=== PATIENT | female | born 1985 | race Caucasian/White ===

== ENCOUNTER 2017-01-13 12:33 | Emergency (ER) | payer BC ==
[~2017-01-13] VITALS: Ht 162.6 cm; Wt 52.2 kg
[~2017-01-13 12:33] MED LIST: PREN-89 PO
--- NOTE | 2017-01-13 12:40 | NUR ---
PLACED IN BED 7 [facility]ACH[facility] MAYS AT BEDSIDE
--- NOTE | 2017-01-13 12:42 | NUR ---
Dr Lucero at bedside examining patient
--- NOTE | 2017-01-13 12:42 | NUR ---
Pt brought by , reports pt is 5 months pt got on 08/28/16, states she was in [place] airport at 09:00 am and started to have lower abdominal pain 05/23 and her water broke, pt weak, no active bleeding noted, cap refill <3, respirations even and unlabored, pt requesting something to drink.
[2017-01-13 12:44] VITALS: BP 123/82; PULSE 115; RESP 24; TEMP 98; O2SAT 100
[2017-01-13] MEDS ORDERED: NS 1000 ML BAG IV ONE (12:45)
--- NOTE | 2017-01-13 12:55 | NUR ---
Pelvic exam performed by Dr Lucero with at bedside for entire examination. Patient tolerated procedure . Patient assisted to position of comfort after examination.
[2017-01-13 13:12] LABS: CALCIUM 8.5 mg/dL (8.4-11.0); CREATININE 0.66 mg/dL (0.55-1.30); POTASSIUM 3.6 mmol/L (3.5-5.1)
[2017-01-13 13:14] LABS: BASOPHILS % (AUTO) 0.3 % (0.0-2.0); EOSINOPHILS # (AUTO) 0.1 K/uL (0.0-0.4); EOSINOPHILS % (AUTO) 0.8 % (0.0-4.0); HEMATOCRIT 34.5 % (36-48); HEMOGLOBIN 12.3 g/dL (12.0-16.0); LYMPHOCYTES # (AUTO) 1.7 K/uL (1.0-5.5); LYMPHOCYTES % (AUTO) 15.2 % (20.5-51.5); MEAN CORPUSCULAR HEMOGLOBIN 34 pg (27-31); MEAN CORPUSCULAR HGB CONC 36 % (32-36); MEAN CORPUSCULAR VOLUME 94 fL (79.0-98.0); MONOCYTES # (AUTO) 0.6 K/uL (0.0-1.0); MONOCYTES % (AUTO) 5.3 % (1.7-9.3); NEUTROPHILS # (AUTO) 8.7 K/uL (1.8-7.7); NEUTROPHILS % (AUTO) 78.4 % (40.0-70.0); RED BLOOD CELL COUNT(AUTO) 3.65 MIL/uL (4.2-6.2); RED CELL DISTRIBUTION WIDTH 11.8 % (9.0-15.0); WHITE BLOOD COUNT (AUTO) 11.1 K/uL (4.8-10.8)
[2017-01-13 13:37] LABS: ALBUMIN 3.1 g/dL (3.4-4.8); TOTAL BILIRUBIN 1.1 mg/dL (0.0-1.0); TOTAL PROTEIN, SERUM 6.7 g/dL (6.4-8.3)
[2017-01-13 13:45] LABS: PLATELET COUNT (AUTO) 321 K/uL (130-430)
[2017-01-13 13:50] LABS: BILIRUBIN,URINE NEGATIVE (NEGATIVE); BLOOD, URINE NEGATIVE (NEGATIVE); CLARITY/URINE CLEAR (CLEAR); COLOR,URINE YELLOW (YELLOW); GLUCOSE,URINE TRACE (NEGATIVE); KETONES,URINE TRACE (NEGATIVE); LEUKOCYTE ESTERASE ,URINE NEGATIVE (NEGATIVE); NITRITE, URINE NEGATIVE (NEGATIVE); PROTEIN URINE NEGATIVE (NEGATIVE); UROBILINOGEN,URINE 0.2 (0.2-1.0)
[2017-01-13 14:04] LABS: BARBITURATE, URINE NEGATIVE (NEG <=200); BENZODIAZEPINE, URINE NEGATIVE (NEG <=150); CANNABINOID, URINE NEGATIVE (NEG <=50); COCAINE, URINE NEGATIVE (NEG <=150); METHAMPHETAMINES SCREEN,URINE NEGATIVE (NEG <=500); OPIATE, URINE NEGATIVE (NEG <=100); PHENCYCLIDINE SCREEN,URINE NEGATIVE (NEG <=25); URINE AMPHETAMINE NEGATIVE (NEG <=500); URINE METHADONE NEGATIVE (NEG <=200); URINE OXYCODONE SCREEN NEGATIVE (NEG <=100)
[2017-01-13 14:05] LABS: UR TRICYCLIC ANTIDEPRESSANTS NEGATIVE (NEG <=300); URINE PROPOXYPHENE SCREEN NEGATIVE (NEG <=300)
[2017-01-13 14:14] LABS: BACTERIA,URINE RARE /HPF (None Seen); MUCUS,URINE 1+ /LPF (None Seen); WBC,URINE 0-3 /HPF (0-3)
--- NOTE | 2017-01-13 15:00 | NUR ---
Assumed cared. no acute distress noted
[2017-01-13 15:35] VITALS: BP 125/68; PULSE 85; RESP 16; TEMP 98; O2SAT 99
--- NOTE | 2017-01-13 15:35 | NUR ---
PT'S HERE TO TAKE PT HOME AND BOTH AND Patient given written and verbal discharge instructions and verbalizes understanding. ER MD discussed with patient the results and treatment provided. Given copies of tests performed in ER. Patient in stable condition. ID arm band removed. Rx of NITROFURANTIN given. Patient educated on pain management and to follow up with PMD. Pain Scale 0/10 Opportunity for questions provided and answered.
== END 2017-01-13 15:35 | disposition home or self-care (01) ==
LOC: SED 12:33
DX: O23.42 Unspecified infection of urinary tract in pregnancy, second trimester (principal); Z3A.21 21 weeks gestation of pregnancy
CPT/HCPCS: 36415; 76805-TC; 80053; 80307; 81000-TC; 83605; 84702-TC; 85025; 87040-TC; 93005; 96360; 96361; 99285; J7030

== ENCOUNTER 2017-05-18 23:12 | Observation (INO) | payer BC ==
[~2017-05-18] VITALS: Ht 170.2 cm; Wt 67.1 kg
[2017-05-18] MEDS ORDERED: TERBUTALINE SULFATE 1 MG/ML VIAL SUBCUT ONE (23:30)
[2017-05-18] MEDS ORDERED: TERBUTALINE SULFATE 1 MG/ML VIAL SUBCUT PRN (23:30)
[2017-05-18] MEDS ORDERED: MEPERIDINE HCL/PF 100 MG/ML AMP IM ONE (23:30)
[2017-05-18] MEDS ORDERED: MEPERIDINE HCL/PF 50 MG/ML AMP ONE (23:42)
[2017-05-18] MEDS ORDERED: MEPERIDINE HCL/PF 25 MG/ML DISP.SYRIN ONE (23:42)
[2017-05-18] MEDS ORDERED: TERBUTALINE SULFATE 1 MG/ML VIAL ONE (23:43)
[2017-05-20 11:14] VITALS: BP_SYST 124
== END 2017-05-19 00:08 | disposition home or self-care (01) ==
LOC: SPU 23:12 → UNDOADMIN 23:12 → UNDODISIN 05-19 00:08 → EDSTATUS 05-21 10:30
PROVIDERS: ATTEND Obstetrics & Gynecology
DX: O62.9 Abnormality of forces of labor, unspecified (principal); Z3A.38 38 weeks gestation of pregnancy
CPT/HCPCS: G0378; J2175 ×2; J3105; 59025; 59899; 81002-TC

== ENCOUNTER 2017-05-19 21:40 | Inpatient (IN) | payer BC ==
[~2017-05-19] VITALS: Ht 167.6 cm; Wt 67.1 kg
[~2017-05-19 21:40] MED LIST changes: +TEMAZEPAM 15 MG CAPSULE PO PRN
[2017-05-19] MEDS ORDERED: LR 1,000 ML IV ONE (22:08)
[2017-05-19] MEDS ORDERED: CITRIC ACID/SODIUM CITRATE 30 ML UDC PO ONE (22:15)
[2017-05-19] MEDS ORDERED: CEFAZOLIN 1 GM IVPB PREMIX 50 ML IV ONE (22:15)
[2017-05-19] MEDS ORDERED: METOCLOPRAMIDE HCL 10 MG/2 ML VIAL IVP ONE (22:15)
[2017-05-19] MEDS ORDERED: CEFAZOLIN 2 GM IVPB PREMIX 50 ML IV ONE ×2 (22:15→23:03)
[2017-05-19 22:35] LABS: BASOPHILS # (AUTO) 0.1 K/uL (0.0-0.2); BASOPHILS % (AUTO) 0.6 % (0.0-2.0); EOSINOPHILS # (AUTO) 0.1 K/uL (0.0-0.4); EOSINOPHILS % (AUTO) 0.7 % (0.0-4.0); HEMATOCRIT 39.2 % (36-48); HEMOGLOBIN 12.8 g/dL (12.0-16.0); LYMPHOCYTES # (AUTO) 2.2 K/uL (1.0-5.5); LYMPHOCYTES % (AUTO) 15.6 % (20.5-51.5); MEAN CORPUSCULAR HEMOGLOBIN 27 pg (27-31); MEAN CORPUSCULAR HGB CONC 33 % (32-36); MEAN CORPUSCULAR VOLUME 82 fL (79.0-98.0); MONOCYTES % (AUTO) 6.9 % (1.7-9.3); NEUTROPHILS # (AUTO) 10.7 K/uL (1.8-7.7); NEUTROPHILS % (AUTO) 76.2 % (40.0-70.0); PLATELET COUNT (AUTO) 237 K/uL (130-430); RED BLOOD CELL COUNT(AUTO) 4.76 MIL/uL (4.2-6.2); RED CELL DISTRIBUTION WIDTH 15.1 % (9.0-15.0); WHITE BLOOD COUNT (AUTO) 14.1 K/uL (4.8-10.8)
[2017-05-19] MEDS ORDERED: MEPERIDINE HCL/PF 25 MG/ML DISP.SYRIN IVP PRN ×2 (23:30)
[2017-05-19] MEDS ORDERED: NALOXONE HCL 0.4 MG/ML AMP (NARCAN) IVP PRN ×3 (23:30)
[2017-05-19] MEDS ORDERED: LR 1,000 ML IV SCH ×2 (23:30→23:52)
[2017-05-19] MEDS ORDERED: ONDANSETRON HCL 4 MG/2 ML VIAL IVP PRN (23:30)
[2017-05-19] MEDS ORDERED: NALOXONE HCL 1 MG in NACL 0.9% 1,000 ML IV PRN ×4 (23:30)
[2017-05-19] MEDS ORDERED: DIPHENHYDRAMINE HCL 50 MG CAPSULE PO PRN (23:30)
[2017-05-19] MEDS ORDERED: HYDROmorphone 2 MG/ML VIAL IVP PRN ×2 (23:30)
[2017-05-19] MEDS ORDERED: HYDROmorphone 1 MG INJ. 1 MG/ML AMPUL IVP PRN (23:30)
[2017-05-19] MEDS ORDERED: DIPHENHYDRAMINE INJ 50 MG/ML VIAL IVP PRN (23:30)
[2017-05-19] MEDS ORDERED: OXYTOCIN/NORMAL SALINE 1,000 ML IV ONE ×2 (23:49→23:52)
[2017-05-20] MEDS ORDERED: OXYCODONE/ACETAMINOPHEN 5-325 TABLET PO PRN
[2017-05-20] MEDS ORDERED: DOCUSATE SODIUM 100 MG CAPSULE PO PRN
[2017-05-20] MEDS ORDERED: BISACODYL 10 MG/SUPPOSITORY RC PRN
[2017-05-20] MEDS ORDERED: LANOLIN 7 GM OINT. TP PRN
[2017-05-20] MEDS ORDERED: MORPHINE SULFATE 10 MG/ML VIAL IVP PRN
[2017-05-20] MEDS ORDERED: ANUSOL 1 EA SUPP.RECT (PREPARATION H) RC PRN
[2017-05-20] MEDS ORDERED: SENNOSIDES/DOCUSATE SODIUM 1 TAB TABLET(SENOKOT-S) PO PRN
[2017-05-20] MEDS ORDERED: ONDANSETRON HCL 4 MG/2 ML VIAL ONE (05:36)
[2017-05-20 05:45] VITALS: BP_SYST 145
[2017-05-20 06:56] LABS: BASOPHILS % (AUTO) 0.1 % (0.0-2.0); EOSINOPHILS % (AUTO) 0.1 % (0.0-4.0); HEMATOCRIT 30.6 % (36-48); HEMOGLOBIN 10.2 g/dL (12.0-16.0); LYMPHOCYTES # (AUTO) 1.3 K/uL (1.0-5.5); LYMPHOCYTES % (AUTO) 7.9 % (20.5-51.5); MEAN CORPUSCULAR HEMOGLOBIN 27 pg (27-31); MEAN CORPUSCULAR HGB CONC 33 % (32-36); MEAN CORPUSCULAR VOLUME 83 fL (79.0-98.0); MONOCYTES # (AUTO) 0.9 K/uL (0.0-1.0); MONOCYTES % (AUTO) 5.3 % (1.7-9.3); NEUTROPHILS # (AUTO) 14.4 K/uL (1.8-7.7); NEUTROPHILS % (AUTO) 86.6 % (40.0-70.0); PLATELET COUNT (AUTO) 197 K/uL (130-430); RED BLOOD CELL COUNT(AUTO) 3.71 MIL/uL (4.2-6.2); RED CELL DISTRIBUTION WIDTH 15.2 % (9.0-15.0); WHITE BLOOD COUNT (AUTO) 16.6 K/uL (4.8-10.8)
[2017-05-20] MEDS: SIMETHICONE 80 MG TAB.CHEW PO PRN (20:21)
[2017-05-21] MEDS: SIMETHICONE 80 MG TAB.CHEW PO PRN (08:46)
[2017-05-21] MEDS: OXYCODONE/ACETAMINOPHEN 5-325 TABLET PO PRN ×2 (08:46→15:18)
[2017-05-21] MEDS: IBUPROFEN 800 MG TABLET PO PRN ×2 (12:34→18:06)
[2017-05-22] MEDS: IBUPROFEN 800 MG TABLET PO PRN ×3 (00:04→12:35)
== END 2017-05-22 13:17 | disposition home or self-care (01) | DRG 765 ==
LOC: SPU 21:40 → OBSVTOIN 22:00 → SPU 05-20 00:40
PROVIDERS: ADMIT Obstetrics & Gynecology; ATTEND Obstetrics & Gynecology
PROC: 10D00Z1 Extraction of Products of Conception, Low, Open Approach (ICD-10-PCS; principal; 2017-05-19)
DX: O36.60X0 Maternal care for excessive fetal growth, unspecified trimester, not applicable or unspecified (principal); O98.42 Viral hepatitis complicating childbirth; B19.10 Unspecified viral hepatitis B without hepatic coma; Z37.0 Single live birth; Z3A.39 39 weeks gestation of pregnancy
CPT/HCPCS: 36415; 85025; 86592; 86886; 86900; 86901; 94760; G0378; J0690; J2310; J2405; J2590; J7030; J7120